=== PATIENT | female | born 2000 | race Caucasian/White ===

== ENCOUNTER 2023-08-02 11:01 | Emergency (ER) | payer BC, SELFPAY ==
[2023-08-02 11:30] VITALS: BP 161/103
[2023-08-02 12:02] LABS: % Basophils 0.6 % (0-2); % Immature Granulocytes 0.3 % (0-0.5); % Lymphocytes 21.7 % (20.5-51.1); % Monocytes 8.1 % (1.7-9.3); % Neutrophils 68.3 % (42.2-75.2); Absolute Basophils 0.1 10^3/uL (0-0.2); Absolute Eosinophils 0.1 10^3/uL (0-0.7); Absolute Lymphocytes 2.1 10^3/uL (1.2-3.4); Absolute Monocytes 0.8 10^3/uL (0.1-0.6); Absolute Neutrophils 6.5 10^3/uL (1.4-6.5); Hematocrit 37.8 % (37.0-47.0); Hemoglobin 13.3 g/dL (12.0-16.0); Mean Corp Hgb Conc. 35.2 g/dL (33.0-37.0); Mean Corpuscular Hgb 29.3 pg (27.0-31.0); Mean Corpuscular Volume 83.3 fL (81.0-99.0); Mean Platelet Volume 9.3 fL (7.4-10.4); Nucleated Red Blood Cells % 0 %; Platelet Count 377 10^3/uL (130-400); Red Blood Cell Count 4.54 10^6/uL (4.20-5.40); Red Cell Dist. Width 12.6 % (11.5-14.5); White Blood Cell Count 9.5 10^3/uL (4.8-10.8)
[2023-08-02 12:06] VITALS: BP 150/91
[2023-08-02 12:11] LABS: HCG, Serum Qualitative Screen Negative
[2023-08-02 12:21] LABS: ALT (SGPT) 77 U/L (0-35); AST (SGOT) 52 U/L (14-36); Albumin 4.6 g/dl (3.5-5.0); Alkaline Phosphatase 75 U/L (38-126); Blood Urea Nitrogen 9 mg/dl (7-17); Carbon Dioxide 22 mmol/L (22-30); Chloride 105 mmol/L (98-107); Glucose 127 mg/dl (70-99); Sodium 137 mmol/L (135-145); Total Bilirubin 0.4 mg/dl (0.2-1.3); Total Protein 7.7 g/dl (6.3-8.2); eGFR > 60.00
[2023-08-02 12:24] LABS: Troponin I < 0.012 ng/ml
[2023-08-02 12:30] VITALS: BMI 39.6
[2023-08-02 12:35] LABS: Lipase 54 U/L (23-300); Potassium 4.5 mmol/L (3.5-5.1)
--- NOTE | 2023-08-02 12:44 | EDRN ---
Dr. Smith in room w/pt at this time.
[2023-08-02] MEDS: NSS 500 IV (13:01)
[2023-08-02 13:02] LABS: D-Dimer 0.33 ug/mlFEU (0.00-0.50)
[2023-08-02] MEDS: PROTONIX IV 40 MG IV (13:02)
[2023-08-02] MEDS: TORADOL 15 MG IV (13:02)
[2023-08-02 13:03] VITALS: BP 142/97
--- NOTE | 2023-08-02 13:52 | ED.GENMED ---
History of Present Illness
General
Chief Complaint: Chest Pain
Source: patient
Exam Limitations: none
Time Seen by Provider: 08/02/23 12:26
Nursing documentation reviewed up to this point in time: agreed with
Travel History
Have you had any contact with someone who has COVID-19?: No
Do you have any symptoms of coronavirus? Fever > 100 degrees, chills, cough, shortness of breath, sore throat, loss of taste or smell, muscle aches, or headache?: No
History of Present Illness
History of Present Illness:
Patient presents to ED secondary to persistent chest pain, which woke the patient up from sleep this morning around 5 AM. Patient has had number of similar chest pain over the past 6-7 years, requiring evaluation with cardiology, but pain has never
lasted this long. Of note, patient was found to also have gallstones last year during one of the workups. Denies recent change in medications or diet.
Past History
Past History
ED Past Medical History: HTN, Valvular disease (MVP) and Other (morbid obesity)
ED Past Surgical History: Other (teeth)
Social History
Tobacco: Non-smoker
Alcohol: None
Drug: None
Personal: Single
Living: with family
Employment: Employed
Review of Systems
Review of Systems
Allergies reviewed?: Yes
All Other Systems: ROS reviewed and negative except as documented in HPI and ROS
Constitutional: Reports no symptoms
EENT: Reports no symptoms
Respiratory: Reports no symptoms
Cardiac: Reports chest pain
ABD/GI: Reports abdominal pain
: Reports no symptoms
Musculoskeletal: Reports no symptoms
Skin: Reports no symptoms
Neurological: Reports no symptoms
Phy Exam
Physical Exam
Physical Exam:
Physical Exam
General: no apparent distress, not acutely ill. afebrile
Head: nc/at. eomi
Neck: supple. no meningeal signs.
Heart: s1/s2 regular rate and rhythm, no murmur. equal radial pulses.
Lungs: no acute respiratory distress. clear bilaterally
Abdomen: normal bowel sounds. mild epigastric tenderness to palpation.
Neuro: alert and oriented. no focal neurological deficits
Skin: no rash
Psychiatric: well kept. interactive and cooperative
Extremities: no edema. no calf tenderness.
Scores
Heart Score for Chest Pain Patients
STEMI patient?: Not applicable
Course
Orders/Labs/Results
Orders:
Orders
08/02/23 11:35
EKG [Electrocardiogram (*1)] Urgent
Reason for Study: Chest Pain
EKG- Treatment ONCE
Test Result ONCE
08/02/23 11:45
Comprehensive Metabolic Panel Urgent
HCG, Serum Qualitative Screen Urgent
Lipase Urgent
08/02/23 11:46
Complete Blood Count/With Diff Urgent
Troponin I Urgent
08/02/23 12:26
CR Chest - 2 Views Urgent
Comment:
Reason For Exam: chest pain
08/02/23 12:42
D-Dimer Urgent
08/02/23 12:48
0.9% Sodium Chloride 500 ml [Nss] 500 ml IV BOLUS
Ketorolac [Toradol] 15 mg IV NOW STA
US Abdomen Complete/Upper Urgent
Comment:
Reason For Exam: epigastric pain
08/02/23 12:49
Pantoprazole [Protonix IV] 40 mg IV NOW STA
Abnormal Lab Results
08/02/23 08/02/23
11:45 11:46
Absolute Monos (auto) 0.8 H 10^3/uL
(0.1-0.6)
Glucose 127 H mg/dl
(70-99)
AST 52 H U/L
(14-36)
ALT 77 H U/L
(0-35)
08/02/23 11:46
08/02/23 11:45
Vital Signs
Initial and Last Documented VS:
Initial Vital Signs
Temp Pulse Resp BP Pulse Ox
98.3 F 69 18 161/103 98
08/02/23 11:30 08/02/23 11:30 08/02/23 11:30 08/02/23 11:30 08/02/23 11:30
Last Documented Vital Signs
Temp Pulse Resp BP Pulse Ox
98.3 F 63 16 134/73 98
08/02/23 11:30 08/02/23 14:30 08/02/23 14:30 08/02/23 14:00 08/02/23 14:30
MDM/Problems Addressed
MDM/Problems Addressed:
History and exam inconsistent with acute coronary syndrome, especially with no risk factors. Symptoms likely secondary to known gallbladder disease, namely multiple gallstones noted on ultrasound. Patient will be advised to follow-up with general
surgery for an outpatient consultation, along with diet modification. Advised to return to ED with her symptoms and, i.e. fever/worsening pain/vomiting.
*Critical Care Note
Total Time (30-74mins, 75-104mins- exclusive of procedures): Not Applicable
ED Attending Note
-
Portions of this chart may have been created with voice recognition software.� Occasional wrong word or��sound alike� substitutions may have occurred due to the inherent limitations of voice recognition software.
Discharge Plan
Departure
Patient Disposition: Home (Routine Discharge)
Date of Disposition: 08/02/23
Time of Disposition: 14:32
Patient with high blood pressure during this ER visit?: Yes
Condition: Good
Discharge Problem:
Gallstones
Instructions: Low Cholesterol, Saturated Fat, and Trans Fat Diet , Gastritis (DC), Gallstones (DC), Ulcer and Gastritis Diet
Prescriptions:
No Action
acetaminophen [Tylenol] 325 mg Tablet
650 mg PO Q6H PRN (Reason: mild pain)
ibuprofen 200 mg tablet
400 - 600 mg PO Q6HPRN PRN (Reason: moderate pain) Qty: 1 0RF
amoxicillin-pot clavulanate [amoxicillin-pot clavulanate] 875-125 mg tablet
1 tab PO Q12 Qty: 14 0RF
oxycodone 5 mg tablet
5 mg PO Q4HPRN PRN (Reason: breakthrough/severe pain) Qty: 5 0RF
ondansetron 4 mg tablet,disintegrating
4 mg PO Q8H PRN (Reason: nausea and vomiting) Qty: 10 0RF
Referrals:
Amarjit Maldonado DO [Family Provider] -
Jared Dick MD [Active] -
Activity Restrictions/Additional Instructions:
As discussed, please follow-up with your primary care physician and/or general surgeon for further evaluation and treatment. Please return to ED with worsening symptoms, i.e. fever/worsening pain/vomiting.
Interventions
Interventions:
*Risk Screen - Suicide Last Done: 08/02/23 12:30
*General Assessment Last Done: 08/02/23 12:30
*Neglect/Abuse Screening Last Done: 08/02/23 12:30
ED- Fall Risk Assessment Last Done: 08/02/23 12:30
*ED COVID-19 Vaccine History Last Done: 08/02/23 12:30
*Nursing Disposition Last Done: 08/02/23 14:43
ED- Cardiac Assessment Last Done: 08/02/23 13:05
Discharge Date and Time
Discharge Date/Time: 08/02/23 14:43
Print Language: SINHALA
[2023-08-02 14:00] VITALS: BP 134/73
== END 2023-08-02 14:43 | disposition home or self-care (01) ==
LOC: EMR 11:01
PROVIDERS: Emergency Medicine; EMERGENCY PHYSICIAN Emergency Medicine; FAMILY PHYSICIAN Family Medicine
DX: K80.20 Calculus of gallbladder without cholecystitis without obstruction (principal); I10 Essential (primary) hypertension
CPT/HCPCS: 99285; 96374; 96375; 96361; 71046; 76700; 80053; 83690; 84484; 84703; 85025; 85379; 93005

== ENCOUNTER 2023-08-03 19:31 | Day surgery (SDC) | payer BC, SELFPAY ==
[2023-08-03] VITALS (11 sets, daily range): BP systolic 107–160; BP diastolic 52–106; BMI 39.2
--- NOTE | 2023-08-03 12:44 | ED.GENMED ---
History of Present Illness
<Ariella Sepulveda PA-C - Last Filed: 08/03/23 18:08>
General
Chief Complaint: Abdominal Pain
Source: patient
Exam Limitations: none
Time Seen by Provider: 08/03/23 12:24
Nursing documentation reviewed up to this point in time: agreed with
Travel History
Have you had any contact with someone who has COVID-19?: No
Do you have any symptoms of coronavirus? Fever > 100 degrees, chills, cough, shortness of breath, sore throat, loss of taste or smell, muscle aches, or headache?: No
History of Present Illness
History of Present Illness:
Patient is a 23-year-old female with history gallstones presenting for evaluation of persistent upper abdominal pain associate with nausea. Pain initially started yesterday very band nailer and has been essentially constant since. Pain is
located in the upper abdomen bilaterally radiating around to the mid back. She reports constant nausea since this pain started with a few episodes of vomiting. Her appetite is somewhat diminished. She denies any fever, diarrhea, constipation,
urinary symptoms.
Patient was seen in the emergency department yesterday afternoon where a workup was completed with findings mainly consistent with cholelithiasis but no evidence to suggest acute cholecystitis or urgent intervention. She was discharged with
recommendation to follow-up with general surgeon outpatient. Patient states that since leaving hospital yesterday afternoon pain has continued to worsen.
Patient had appendectomy this past November. She is currently on her menstrual period.
Patient has had known gallstones for over 6 months now. She reports occasional attacks of pain but typically they do not last more than an hour.
Past History
<Ariella Sepulveda PA-C - Last Filed: 08/03/23 18:08>
Past History
ED Past Medical History: HTN, Valvular disease (MVP) and Other (morbid obesity)
ED Past Surgical History: Other (teeth)
Social History
Tobacco: Non-smoker
Alcohol: None
Drug: None
Personal: Single
Living: with family
Employment: Employed
Phy Exam
<Ariella Sepulveda PA-C - Last Filed: 08/03/23 18:08>
Physical Exam
Physical Exam:
General: In no apparent distress, nontoxic appearing
Vitals: Hypertensive, otherwise vital signs stable; afebrile
HEENT: Atraumatic, normocephalic; pupils equal round react light bilaterally, extraocular muscle intact, protecting airway, uvula midline
Neck: appears supple, trachea midline
CV: Regular rate and rhythm, heart sounds normal, no evidence of cyanosis
Resp: No evidence of respiratory distress, lungs clear bilaterally
Abd: Soft, moderate tenderness in upper abdomen, worse in right upper quadrant; positive Norwood sign, non-distended; no CVA tenderness
Extremities: No deformities, no evidence of cyanosis or edema; DP pulses palpable and equal bilaterally
Neuro: alert and oriented; grossly intact
Psych: Normal affect
Skin: Intact, no rashes
Course
<Ariella Sepulveda PA-C - Last Filed: 08/03/23 18:08>
Orders/Labs/Results
Orders:
Orders
08/03/23 12:45
0.9% Sodium Chloride 1000 ml [Nss] 1,000 ml IV BOLUS
HYDROmorphone [Dilaudid] 0.5 mg IV NOW STA
Ondansetron Injectable [Zofran] 4 mg IV NOW STA
US Abdomen Limited Urgent
Reason For Exam: upper abdominal pain; known hisotry gallstones
08/03/23 12:46
Test Result ONCE
08/03/23 13:15
Complete Blood Count/With Diff Urgent
Comprehensive Metabolic Panel Urgent
HCG, Serum Qualitative Screen Urgent
Lipase Urgent
08/03/23 14:10
Piperacillin/Tazo 4.5 Gram [Zosyn] 4.5 gram in 100 ml IV NOW
08/03/23 Dinner
NPO
Allow oral meds: Yes
Allow clear liquids: No
08/03/23 15:18
HYDROmorphone [Dilaudid] 0.5 mg IV NOW STA
Ondansetron Injectable [Zofran] 4 mg IV NOW STA
08/03/23 15:25
Admit Patient As Directed
Co-Sign Provider:
Level of Care: Post Proc/Surg Recovery
Assign to:: Medical/Surgical
Physician / Group: Bryan / LYNNE
Diagnosis: Cholecystitis
Reason for Overnight Stay: Standard of Care
Code Status As Directed
Resuscitation Status: Full Code
HYDROmorphone [Dilaudid] 0.5 mg IV Q2HPRN PRN
Ondansetron Injectable [Zofran] 4 mg IV Q6HPRN PRN
Activity As Directed
Activity Level: Ambulate
Intake/ Output As Directed
Frequency: Per unit guidelines
Pneumatic Compression Sleeves As Directed
Type: Knee high
Vital Signs As Directed
Frequency: Per unit guidelines
DX Deep Vein Thrombosis Video Routine
08/03/23 15:26
O2 Therapy [RESP] Routine
Titrate/Wean O2 to maintain O2 sat greater than (%): 90
Rx Incentive Spirometry [RESP] Routine
Frequency: q1h while awake
# of times per hour: 10
08/03/23 16:00
Acetaminophen [Tylenol] 650 mg PO Q4HWA
Normosol (Mult Electrolytes) [Normosol-R] 1,000 ml IV 100 mls/hr
08/03/23 17:03
Famotidine [Pepcid] 20 mg .ROUTE .STK-MED ONE
08/03/23 17:04
Ketamine 5 ml .ROUTE .STK-MED
08/03/23 17:29
Dexamethasone Sod Phosphate [Decadron] 20 mg .ROUTE .STK-MED ONE
Fentanyl Citrate/Pf [Sublimaze] 100 mcg .ROUTE .STK-MED ONE
Lidocaine 2% [Xylocaine 2% Mdv] 20 ml .ROUTE .STK-MED ONE
Midazolam HCl [Versed] 2 mg .ROUTE .STK-MED ONE
Ondansetron Injectable [Zofran] 4 mg .ROUTE .STK-MED ONE
Propofol [Diprivan] 20 ml .ROUTE .STK-MED
Rocuronium [place] [Rocuronium] 50 mg .ROUTE .STK-MED ONE
08/04/23 08:00
Pantoprazole [Protonix IV] 40 mg IV DAILY
08/04/23 18:00
Enoxaparin Sodium [Lovenox] 40 mg SC QPM
Abnormal Lab Results
08/03/23
13:15
WBC 13.2 H 10^3/uL
(4.8-10.8)
Hct 36.6 L %
(37.0-47.0)
Abs Immat Gran (auto) 0.1 H 10^3/uL
(0-0.05)
Absolute Neuts (auto) 10.0 H 10^3/uL
(1.4-6.5)
Absolute Monos (auto) 1.0 H 10^3/uL
(0.1-0.6)
Neutrophils % 75.7 H %
(42.2-75.2)
Lymphocytes % 15.3 L %
(20.5-51.1)
Creatinine 0.5 L mg/dL
(0.6-1.0)
Glucose 100 H mg/dl
(70-99)
AST 181 H U/L
(14-36)
ALT 292 H U/L
(0-35)
08/03/23 13:15
08/03/23 13:15
Vital Signs
Initial and Last Documented VS:
Initial Vital Signs
Temp Pulse Resp BP Pulse Ox
99.2 F 91 18 160/106 99
08/03/23 11:39 08/03/23 11:39 08/03/23 11:39 08/03/23 11:39 08/03/23 11:39
Last Documented Vital Signs
Temp Pulse Resp BP Pulse Ox
98.0 F 93 20 124/82 99
08/03/23 15:16 08/03/23 16:45 08/03/23 16:45 08/03/23 16:45 08/03/23 16:45
<Shannon Kiran MD - Last Filed: 08/03/23 14:07>
Orders/Labs/Results
Orders:
Orders
08/03/23 12:45
0.9% Sodium Chloride 1000 ml [Nss] 1,000 ml IV BOLUS
HYDROmorphone [Dilaudid] 0.5 mg IV NOW STA
Ondansetron Injectable [Zofran] 4 mg IV NOW STA
US Abdomen Limited Urgent
Reason For Exam: upper abdominal pain; known hisotry gallstones
08/03/23 12:46
Test Result ONCE
08/03/23 13:15
Complete Blood Count/With Diff Urgent
Comprehensive Metabolic Panel Urgent
HCG, Serum Qualitative Screen Urgent
Lipase Urgent
08/03/23 14:10
Piperacillin/Tazo 4.5 Gram [Zosyn] 4.5 gram in 100 ml IV NOW
08/03/23 Dinner
NPO
Allow oral meds: Yes
Allow clear liquids: No
08/03/23 15:18
HYDROmorphone [Dilaudid] 0.5 mg IV NOW STA
Ondansetron Injectable [Zofran] 4 mg IV NOW STA
08/03/23 15:25
Admit Patient As Directed
Co-Sign Provider:
Level of Care: Post Proc/Surg Recovery
Assign to:: Medical/Surgical
Physician / Group: Bryan / LYNNE
Diagnosis: Cholecystitis
Reason for Overnight Stay: Standard of Care
Code Status As Directed
Resuscitation Status: Full Code
HYDROmorphone [Dilaudid] 0.5 mg IV Q2HPRN PRN
Ondansetron Injectable [Zofran] 4 mg IV Q6HPRN PRN
Activity As Directed
Activity Level: Ambulate
Intake/ Output As Directed
Frequency: Per unit guidelines
Pneumatic Compression Sleeves As Directed
Type: Knee high
Vital Signs As Directed
Frequency: Per unit guidelines
DX Deep Vein Thrombosis Video Routine
08/03/23 15:26
O2 Therapy [RESP] Routine
Titrate/Wean O2 to maintain O2 sat greater than (%): 90
Rx Incentive Spirometry [RESP] Routine
Frequency: q1h while awake
# of times per hour: 10
08/03/23 16:00
Acetaminophen [Tylenol] 650 mg PO Q4HWA
Normosol (Mult Electrolytes) [Normosol-R] 1,000 ml IV 100 mls/hr
08/03/23 17:03
Famotidine [Pepcid] 20 mg .ROUTE .STK-MED ONE
08/03/23 17:04
Ketamine 5 ml .ROUTE .STK-MED
08/03/23 17:29
Dexamethasone Sod Phosphate [Decadron] 20 mg .ROUTE .STK-MED ONE
Fentanyl Citrate/Pf [Sublimaze] 100 mcg .ROUTE .STK-MED ONE
Lidocaine 2% [Xylocaine 2% Mdv] 20 ml .ROUTE .STK-MED ONE
Midazolam HCl [Versed] 2 mg .ROUTE .STK-MED ONE
Ondansetron Injectable [Zofran] 4 mg .ROUTE .STK-MED ONE
Propofol [Diprivan] 20 ml .ROUTE .STK-MED
Rocuronium [place] [Rocuronium] 50 mg .ROUTE .STK-MED ONE
08/04/23 08:00
Pantoprazole [Protonix IV] 40 mg IV DAILY
08/04/23 18:00
Enoxaparin Sodium [Lovenox] 40 mg SC QPM
Abnormal Lab Results
08/03/23
13:15
WBC 13.2 H 10^3/uL
(4.8-10.8)
Hct 36.6 L %
(37.0-47.0)
Abs Immat Gran (auto) 0.1 H 10^3/uL
(0-0.05)
Absolute Neuts (auto) 10.0 H 10^3/uL
(1.4-6.5)
Absolute Monos (auto) 1.0 H 10^3/uL
(0.1-0.6)
Neutrophils % 75.7 H %
(42.2-75.2)
Lymphocytes % 15.3 L %
(20.5-51.1)
Creatinine 0.5 L mg/dL
(0.6-1.0)
Glucose 100 H mg/dl
(70-99)
AST 181 H U/L
(14-36)
ALT 292 H U/L
(0-35)
08/03/23 13:15
08/03/23 13:15
Vital Signs
Initial and Last Documented VS:
Initial Vital Signs
Temp Pulse Resp BP Pulse Ox
99.2 F 91 18 160/106 99
08/03/23 11:39 08/03/23 11:39 08/03/23 11:39 08/03/23 11:39 08/03/23 11:39
Last Documented Vital Signs
Temp Pulse Resp BP Pulse Ox
98.0 F 93 20 124/82 99
08/03/23 15:16 08/03/23 16:45 08/03/23 16:45 08/03/23 16:45 08/03/23 16:45
<Ariella Sepulveda PA-C - Last Filed: 08/03/23 18:08>
MDM/Problems Addressed
Differential Diagnosis Includes:
Cholelithiasis, cholecystitis, choledocholithiasis, cholangitis, pancreatitis,
MDM/Problems Addressed:
Patient is a 23-year-old female with known history of gallstones presenting for evaluation of persistent upper abdominal pain with associated nausea and vomiting. Patient reports occasional chills. Seen in emergency department yesterday with a
negative workup other than cholelithiasis. Patient states pain has been persistent since yesterday evening. Patient is hypertensive, otherwise vital signs stable, afebrile. Physical exam as documented above. She is significantly tender in right
upper quadrant with positive Norwood sign. Abdomen is soft. Will check basic labs, lipase. Will repeat abdominal ultrasound today. Dilaudid for pain, Zofran. IV fluids. Given persistence of pain for 48 hours�suspect this is likely an acute
cholecystitis.
Labs significant for leukocytosis of 13.2. Both AST and ALT are increased from yesterday. Lipase normal. test normal. Abdominal ultrasound pending. Patient does report some improvement after pain medication. Given lab findings and
physical exam�concern for acute cholecystitis, discussed with surgeon. Will start IV Zosyn. Admission pending ultrasound report.
Ultrasound shows findings of cholelithiasis but no findings suggestive of acute cholecystitis. CBD is normal in size. Discussed findings with surgeon who will proceed with cholecystectomy either today or tomorrow given persistent pain and lab
findings. Admitted to general surgeon, Dr. Adams.
Chronic conditions affecting care:
Cholelithiasis
Acute Exacerbation and/or Progression of Chronic Illness:
Acute cholecystitis
<Ariella Sepulveda PA-C - Last Filed: 08/03/23 18:08>
*Radiology
Radiology exam reviewed: radiology read reviewed
*Pulse Oximetry
Patient hypoxic: no
*Eap Specialist Interpretation
Rate: Eap Specialist- N/A
*Critical Care Note
Total Time (30-74mins, 75-104mins- exclusive of procedures): Not Applicable
Data Reviewed
Review of Other/Old Records Reveals: Labs, Records, Radiology Studies and Discharge Summary
Source: patient, family and previous hospital records
<Ariella Sepulveda PA-C - Last Filed: 08/03/23 18:08>
Patient Management
Discussion with other providers: Profile Shaper Operator (General surgeon, Dr. Adams)
Escalation/DeEscalation of care consider admission/obs:
Admission to general surgery for cholecystectomy
ED Attending Note
<Ariella Sepulveda PA-C - Last Filed: 08/03/23 18:08>
-
Portions of this chart may have been created with voice recognition software.� Occasional wrong word or��sound alike� substitutions may have occurred due to the inherent limitations of voice recognition software.
<Shannon Kiran MD - Last Filed: 08/03/23 14:07>
ED Attending Note
Patient seen and examined by attending physician: Yes
I performed the substantive portion of visit, reviewed & personally made and approve the management plan that is documented in note by myself or KHURRAM.: Yes
ED Attending Note:
Patient appears nontoxic but has upper abdominal tenderness, elevated white blood cell count, elevated LFTs and history of gallstones. Presentation is likely consistent with acute cholecystitis. On exam, patient's lungs are clear and abdomen is
soft with upper abdominal tenderness. Antibiotics will be started and surgery will be made aware.
Discharge Plan
Departure
Patient Disposition: Admit
Date of Disposition: 08/03/23
Time of Disposition: 15:32
Presentation/result/management discussed w/ accepting MD/DO: Dr. Adams
Discharge Problem:
Acute cholecystitis
Prescriptions:
No Action
acetaminophen [Tylenol] 325 mg Tablet
650 mg PO Q6HPRN PRN (Reason: mild pain)
famotidine [Pepcid] 20 mg Tablet
20 mg PO DAILYPRN PRN (Reason: gerd)
Referrals:
Amarjit Maldonado, [Family Provider] -
Interventions
Interventions:
*Risk Screen - Suicide Last Done: 08/03/23 17:36
*General Assessment Last Done: 08/03/23 16:53
*Neglect/Abuse Screening Last Done: 08/03/23 16:53
ED- Fall Risk Assessment Last Done: 08/03/23 17:36
*ED COVID-19 Vaccine History Last Done: 08/03/23 11:42
*Nursing Disposition Last Done: 08/03/23 17:36
ZS-Ffebme-Jnprvfshli Assessment Last Done: 08/03/23 17:34
Discharge Date and Time
Discharge Date/Time: 08/03/23 17:41
Print Language: MEXICAN
[2023-08-03] MEDS: NSS 1000 IV (13:14)
[2023-08-03] MEDS: ZOFRAN 4 MG IV ×2 (13:14→16:00)
[2023-08-03] MEDS: DILAUDID 0.5 MG IV ×2 (13:15→15:59)
[2023-08-03 13:21] LABS: % Basophils 0.5 % (0-2); % Eosinophils 0.7 % (0-6); % Immature Granulocytes 0.4 % (0-0.5); % Lymphocytes 15.3 % (20.5-51.1); % Monocytes 7.4 % (1.7-9.3); % Neutrophils 75.7 % (42.2-75.2); Absolute Basophils 0.1 10^3/uL (0-0.2); Absolute Eosinophils 0.1 10^3/uL (0-0.7); Absolute Immature Granulocytes 0.1 10^3/uL (0-0.05); Hematocrit 36.6 % (37.0-47.0); Hemoglobin 13.2 g/dL (12.0-16.0); Mean Corp Hgb Conc. 36.1 g/dL (33.0-37.0); Mean Corpuscular Hgb 29.4 pg (27.0-31.0); Mean Corpuscular Volume 81.5 fL (81.0-99.0); Nucleated Red Blood Cells % 0 %; Platelet Count 392 10^3/uL (130-400); Red Blood Cell Count 4.49 10^6/uL (4.20-5.40); Red Cell Dist. Width 12.6 % (11.5-14.5); White Blood Cell Count 13.2 10^3/uL (4.8-10.8)
[2023-08-03 13:32] LABS: HCG, Serum Qualitative Screen Negative
[2023-08-03 13:45] LABS: ALT (SGPT) 292 U/L (0-35); AST (SGOT) 181 U/L (14-36); Albumin 4.6 g/dl (3.5-5.0); Alkaline Phosphatase 95 U/L (38-126); Blood Urea Nitrogen 8 mg/dl (7-17); Calcium 9.8 mg/dl (8.4-10.2); Carbon Dioxide 24 mmol/L (22-30); Chloride 103 mmol/L (98-107); Glucose 100 mg/dl (70-99); Lipase 73 U/L (23-300); Potassium 4.4 mmol/L (3.5-5.1); Sodium 136 mmol/L (135-145); Total Bilirubin 0.8 mg/dl (0.2-1.3); Total Protein 7.8 g/dl (6.3-8.2); eGFR > 60.00
[2023-08-03] MEDS: ZOSYN 100 IV (15:13)
--- NOTE | 2023-08-03 15:18 | CON.GS ---
Medical History
-
Chief Complaint: RUQ pain
Past Medical History
Past Medical History: GERD, HTN and Other (Obesity)
Past Surgical History: Appendectomy (Laparoscopic appendectomy)
Social History
Tobacco: Non-Smoker
Alcohol: Occasional
Drug: None
Personal: Partner
Living: With Family
Employment: Employed (Nurse)
Family History
Family History: Other (Cholecystectomy on Mother's side)
Allergies / Home Medications
Allergy/AdvReac Type Severity Reaction Status Date / Time
No Known Allergies Allergy Verified 08/03/23 11:45
�Medication �Instructions �Recorded �Confirmed �Type
acetaminophen 325 mg tablet 650 mg PO Q6HPRN PRN mild pain 12/03/22 08/03/23 History
(Tylenol)
famotidine 20 mg tablet (Pepcid) 20 mg PO DAILYPRN PRN gerd 08/03/23 08/03/23 History
Review of Systems
-
A 10 point review of systems was completed, and was negative except as per HPI.
Physical Exam
Vital Signs
Temp Pulse Resp BP Pulse Ox
98.0 F 78 18 128/83 98
08/03/23 15:16 08/03/23 15:16 08/03/23 11:39 08/03/23 15:16 08/03/23 15:16
08/02/23 08/03/23 08/04/23
06:59 06:59 06:59
Actual Weight 116.8 kg
Lab Results
08/03/23 13:15
08/03/23 13:15
WBC 13.2 10^3/uL (4.8-10.8) H 08/03/23 13:15
Hgb 13.2 g/dL (12.0-16.0) 08/03/23 13:15
Hct 36.6 % (37.0-47.0) L 08/03/23 13:15
Plt Count 392 10^3/uL (130-400) 08/03/23 13:15
Abs Immat Gran (auto) 0.1 10^3/uL (0-0.05) H 08/03/23 13:15
Neutrophils % 75.7 % (42.2-75.2) H 08/03/23 13:15
Physical Exam
General: Well Developed, Well Nourished and No Apparent Distress
HEENT: Normocephalic and Anicteric
Respiratory: Non Labored Respirations
Cardiac: Regular Rhythm
GI: Soft, Non Distended, Tender (Minimal RUQ, unable to obtain Norwood's sign exam limited due to obesity), Obese and Other (Non-peritoneal)
Musculoskeletal: No Edema
Skin: Warm and Dry
Neuro: Nonfocal/Grossly Intact
Data Reviewed
-
Ultrasound: Image Personally Visualized and interpreted and Report Reviewed by me
Labs: Labs Reviewed by me
Old Records: Reviewed
Assessment / Plan
-
Patient is a 23 yo F p/w persistent epigastric and RUQ abdominal pain consistent with severe biliary colic versus more likely acute cholecystitis
Natural history and pathophysiology of biliary and stone disease was discussed. Workup thus far including labs and imaging were reviewed. Anatomy was reviewed. Options for management including medical management with a low-fat diet versus
surgical management with cholecystectomy were considered and discussed. The pros and cons of both approaches was discussed. Given her persistent pain and early presentation, recommend cholecystectomy.
Plan for a laparoscopic cholecystectomy with intraoperative cholangiogram. The procedure itself, as well as the risks, benefits, and alternatives was discussed. Specifically, we discussed the risks of bleeding, infection, injury to surrounding
structures (bowel, bile ducts), CBD injury, need for open procedure. Typical postprocedural recovery including pain management, time off from work, and the 10 to 20% risk of fluctuations in GI function was discussed. All questions answered.
Consent signed.
-- Laparoscopic cholecystectomy possible cholangiogram
-- NPO, IVF
-- Abx: Zosyn
-- Pain control: Tylenol and IV Dilaudid PRN
[2023-08-03] MEDS: NORMOSOL-R 1000 IV ×2 (16:47→22:04)
[2023-08-03] MEDS: TYLENOL 650 MG PO (16:50)
--- NOTE | 2023-08-03 18:45 | W.SUR.PREOP ---
Pre-Operative Surgical Note
-
I have examined this patient prior to the performance of the scheduled procedure.
The patient's condition is unchanged from the time of the current History and
Physical and the patient is able to undergo the scheduled procedure.
--- NOTE | 2023-08-03 21:08 | W.IMMPOSTOP ---
Addendum entered and electronically signed by Chucho Adams MD 08/04/23 07:28:
Dic# [id number]
Original Note:
Surgical Immed Post Op Note
-
Primary Surgeon: Bryan
Assisting Surgeon: MADHU Daiz
Pre-op Diagnosis: Acute cholecystitis
Post-op Diagnosis: Acute cholecystitis
Procedure Performed: Laparoscopic cholecystectomy with IOC
Anesthesia Type: General
Specimen / Cultures:
1. Gallbladder
Estimated Blood Loss: 51 cc
Complications: None
Operative Findings:
1. Severe fatty liver disease, intrahepatic GB, thin walled and filled with stones
2. Critical view of safety, IOC negative
3. Duct with stapler, artery with clips
[2023-08-03] MEDS: DILAUDID 0.25 MG IV (21:56)
[2023-08-03] MEDS: ZOSYN 50 IV (22:07)
[2023-08-03] MEDS: COMPAZINE 5 MG IV (22:25)
--- NOTE | 2023-08-03 23:19 | PTCARENOTE ---
Pt rec'vd from PACU at approx 22:40, pt aaox3, drowsy but is easily aroused to verbal commands, expresses some pain 3 abd throughout at this time, 5lap glued lap sites noted, no drainage. IVF infusing via r/ f/a #20, pt oriented to unit .
[2023-08-04] MEDS: TYLENOL PO ×2 (00:08→00:31)
[2023-08-04 00:40] VITALS: BP 109/64
[2023-08-04 01:40] VITALS: BP 108/63
[2023-08-04 03:00] VITALS: BP 108/64
[2023-08-04] MEDS: TYLENOL 650 MG PO ×2 (04:07→08:40)
[2023-08-04] MEDS: DILAUDID 0.5 MG IV (05:35)
[2023-08-04 07:00] VITALS: BP 124/62
[2023-08-04] MEDS: NORMOSOL-R 1000 IV (07:22)
[2023-08-04] MEDS: PROTONIX IV 40 MG IV (08:40)
[2023-08-04] MEDS: NSS (PRESERVATIVE FREE) 10 ML IV (08:40)
[2023-08-04] MEDS: TORADOL 10 MG IV (08:48)
--- NOTE | 2023-08-04 09:46 | W.PN.GS2 ---
Today's Communication / Plan
-
-- DC today
Assessment / Plan
-
Patient is a 23 yo F POD#1 s/p laparoscopic cholecystectomy with IOC
Recovering well. No postoperative concerns.
-- LFD
-- Pain control: Tylneol, Toradol, Oxycodone PRN
-- HLIV
-- Home PPI
-- Lovenox for DVT
-- DC today
Subjective Data
-
Date of Service: August 04, 2023
Mild abdominal soreness and nausea. Able to tolerate a low-fat diet for breakfast without nausea or vomiting. Ambulating. Voiding. No fevers or chills.
Objective Data
-
Intake and Output
08/03/23 08/04/23 08/05/23
06:59 06:59 06:59
Intake Total 220 / 1020 800 / 800
Output Total 400 / 400
Balance -180 / 620 800 / 800
Intake:
Oral fluids 120 / 120
IV fluids (Total) 100 / 900 800 / 800
Normosol 100 / 100
Output:
Urine, Voided 400 / 400
Vital Signs
Temp Pulse Resp BP Pulse Ox
98.0 F 74 14 124/62 96
08/04/23 07:00 08/04/23 07:00 08/04/23 07:00 08/04/23 07:00 08/04/23 07:00
Lab Results
08/03/23 13:15
08/03/23 13:15
Calcium 9.8 mg/dl (8.4-10.2) 08/03/23 13:15
Total Bilirubin 0.8 mg/dl (0.2-1.3) 08/03/23 13:15
AST 181 U/L (14-36) H 08/03/23 13:15
ALT 292 U/L (0-35) H 08/03/23 13:15
Alkaline Phosphatase 95 U/L (38-126) 08/03/23 13:15
Total Protein 7.8 g/dl (6.3-8.2) 08/03/23 13:15
Albumin 4.6 g/dl (3.5-5.0) 08/03/23 13:15
Physical Exam
-
Gen: NAD
Abd: soft, obese, appropriately tender, ND, incisions c/d/i - no erythema, ecchymosis or drainage
--- NOTE | 2023-08-04 10:21 | CM ---
CM following re: discharge planning.
Reviewed pt's chart, met with pt.
Pt is a 23 year old female, admitted with SDC status and primary dx of POD#1 s/p laparoscopic cholecystectomy with IOC. Per Surgery, pt will be discharged today.
Pt reports she lives with a girlfriend in an apartment, ground floor, 1 step to enter, has 4 supportive siblings, supportive mother. Pt described herself as independent in all areas [employer], drives, works.
Discharge order noted. Pt is aware and she stated her mother will transport her home.
PCP: Amarjit Maldonado
Pharmacy: [facility]
D/C plan; home with no nees.mother to transport.
[2023-08-04 11:04] VITALS: BP 121/63
== END 2023-08-04 12:02 | disposition home or self-care (01) ==
LOC: PACU 19:31
PROVIDERS: Physician Assistant; ATTENDING PHYSICIAN Surgery; EMERGENCY PHYSICIAN Emergency Medicine; FAMILY PHYSICIAN Family Medicine
DX: K80.10 Calculus of gallbladder with chronic cholecystitis without obstruction (principal); K76.0 Fatty (change of) liver, not elsewhere classified; E66.01 Morbid (severe) obesity due to excess calories; Z68.41 Body mass index [BMI] 40.0-44.9, adult
CPT/HCPCS: 47563; 88304; 74300; 76000; 76705; 80053; 83690; 84703; 85025; 96361; 96365; 96375; 99285